=== PATIENT | female | born 1945 | race Caucasian/White ===

== ENCOUNTER → 2018-07-29 | Day surgery (SDC) | payer OTHER ==
[~2018-07-29] MED LIST: ALBUTEROL SULFATE 2.5 MG/3 ML NEBU. NEB PRN; IPRATRPIUM/ALBUTEROL 0.5/2.5MG 3 ML NEBU. NEB PRN; IV RINGERS SOLUTION,LACTATED 1,000 ML IV SCH; LIDOCAINE 2% PF Vial for OR 5 ML VIAL. ONE; LOVA20TA2 PO; METO25TA4 PO; ONDANSETRON PF 4 MG/2 ML VIAL. IV PRN; PROPOFOL 10,000 MCG/ML (20ML) VIAL IV ONE; PROPOFOL 40 ML IV ONE; RACEPINEPHRINE 2.25% 0.5 ML NEBU. NEB PRN; RANI150T21 PO
[2018-07-29 13:54] VITALS: BP 121/61
== END | disposition home or self-care (01) ==
LOC: SURG 10:07
PROVIDERS: ATTEND Internal Medicine Gastroenterology
DX: Z12.11 Encounter for screening for malignant neoplasm of colon (principal); I10 Essential (primary) hypertension; K21.9 Gastro-esophageal reflux disease without esophagitis; Z86.010 Personal history of colon polyps; Z79.899 Other long term (current) drug therapy
CPT/HCPCS: 45378; J2704; J7120; G0105; J2001